=== PATIENT | female | born 1975 | race Caucasian/White ===

== ENCOUNTER 2017-10-26 09:45 | Emergency (ER) | payer OTHER ==
[2017-10-26 09:58] VITALS: BP 143/79
--- NOTE | 2017-10-26 10:01 | UC ---
Hand/Wrist HPI - HPI Summary HPI Summary: This 42-year-old lady hit her left hand a baby gate once today and once yesterday has worsening pain in second and third metacarpal area - History Of Current Complaint Chief Complaint: UCUpperExtremity Stated Complaint: HAND INJURY Time Seen by Provider: 10/26/17 10:00 Hx Obtained From: Patient Hx Last Menstrual Period: ended 08/26/14 Onset/Duration: Sudden Onset, Lasting Days - 1 Severity Initially: Moderate Severity Currently: Moderate Pain Intensity: 6 Pain Scale Used: 0-10 Numeric Character Of Pain: Aching, Throbbing Aggravating Factor(s): Movement, Lifting Alleviating Factor(s): Nothing Associated Signs And Symptoms: Positive: Swelling, Bruising Related History: Dominant Hand Right - Allergies/Home Medications Allergies/Adverse Reactions: Allergies Allergy/AdvReac Type Severity Reaction Status Date / Time No Known Allergies Allergy Verified 10/26/17 09:54 Home Medications: Home Medications Unobtainable [Unobtainable] 10/26/17 [History Confirmed 10/26/17] PMH/Surg Hx/FS Hx/Imm Hx Previously Healthy: Yes - Surgical History Surgical History: Yes Surgery Procedure, Year, and Place: [employer] - cyst and polyp - Family History Known Family History: Positive: None - Social History Occupation: Employed Full-time Lives: With Family Alcohol Use: None Substance Use Type: None Smoking Status (MU): Never Smoked Tobacco Review of Systems Constitutional: Negative Skin: Negative Eyes: Negative ENT: Negative Respiratory: Negative Cardiovascular: Negative Gastrointestinal: Negative Genitourinary: Negative Motor: Negative Neurovascular: Negative Musculoskeletal: Arthralgia - Back left hand near second third metacarpal Neurological: Negative Psychological: Negative Is Patient Immunocompromised?: No All Other Systems Reviewed And Are Negative: Yes Physical Exam Triage Information Reviewed: Yes Appearance: Well-Appearing, No Pain Distress, Well-Nourished Vital Signs: Initial Vital Signs Temp 98.2 F 10/26/17 09:51 Pulse 80 10/26/17 09:51 Resp 19 10/26/17 09:51 BP 143/79 10/26/17 09:51 Pulse Ox 100 10/26/17 09:51 Vital Signs Reviewed: Yes Eye Exam: Normal Eyes: Positive: Conjunctiva Clear ENT Exam: Normal ENT: Positive: Normal ENT inspection, Hearing grossly normal. Negative: Nasal drainage, TMs normal, Trismus, Muffled voice, Hoarse voice, Dental tenderness, Sinus tenderness Dental Exam: Normal Neck exam: Normal Neck: Positive: Supple, Nontender, No Lymphadenopathy Respiratory Exam: Normal Respiratory: Positive: Chest non-tender, No respiratory distress, No accessory muscle use Cardiovascular Exam: Normal Cardiovascular: Positive: RRR, Pulses Normal, Brisk Capillary Refill Musculoskeletal Exam: Normal Musculoskeletal: Positive: Strength Intact, ROM Intact, Edema @ - Small amount of swelling with bruising on tobacco left hand her second third metacarpal Neurological Exam: Normal Neurological: Positive: Alert Psychological Exam: Normal Skin Exam: Other Skin: Positive: Other - Bruising tobacco left hand Diagnostics - Radiology No standard instances Xray Interpretation: No Acute Changes Radiology Interpretation Completed By: ED Physician, Radiologist Hand/Wrist Course/Dx - Course Course Of Treatment: Ice, Reynaldo wrap, Tylenol, ibuprofen follow with PCP. - Differential Dx/Diagnosis Provider Diagnoses: Elevated blood pressure without diagnosis of hypertension, contusion left hand Discharge - Discharge Plan Condition: Stable Disposition: HOME Patient Education Materials: Hypertension (ED), Contusion in Adults (ED) Referrals: Riley Desai MD [Primary Care Provider] - 1 Week
--- NOTE | 2017-10-26 10:34 | RAD ---
INDICATION: Pain at the dorsal hand, specifically the second and third metacarpals after trauma COMPARISON: None. TECHNIQUE: 4 views of the left hand were obtained. FINDINGS: The adequately corticated bones are in normal alignment. No significant focal osseous abnormality or fracture is seen. Joint spaces appear maintained. IMPRESSION: No radiographically apparent fracture or dislocation of the left hand If the patient's symptoms persist, follow-up imaging is recommended.
== END 2017-10-26 10:52 | disposition home or self-care (01) ==
LOC: UCEAST 09:45
DX: S60.222A Contusion of left hand, initial encounter (principal); W22.8XXA Striking against or struck by other objects, initial encounter; Y92.9 Unspecified place or not applicable; R03.0 Elevated blood-pressure reading, without diagnosis of hypertension
CPT/HCPCS: 99212; G0463

== ENCOUNTER 2017-11-05 07:53 | Day surgery (SDC) | payer OTHER ==
[~2017-11-05 07:53] MED LIST: Buffered Lidocaine 0.9% SYRIN* 5 ML/SYR SYRINGE INTRADERM ONE; DiMENhydriNATE IV* 50 MG/ML VIAL IV PUSH PRN; Famotidine IV* 10 MG/ML 2 ML (20 mg) IV ONE; Morphine INJ* 2 MG/ML 1 ML CARPUJECT IV PRN; Naloxone* 0.4 MG/ML 1 ML VIAL IV PRN; PROCHLORPERAZINE INJ 5 MG/ML 2 ML VIAL IV PRN; Scopolamine 1.5 mg* PATCH TRANSDERM PRN; fentaNYL* 50 MCG/ML 2 ML VIAL (100 MCG VIAL) IV PRN; oxyCODONE/Acetamin 5/325 MG* TAB PO PRN
[2017-11-05] MEDS ORDERED: Famotidine IV* 10 MG/ML 2 ML (20 mg) ONE (08:07)
[2017-11-05] MEDS ORDERED: fentaNYL* 50 MCG/ML 2 ML VIAL (100 MCG VIAL) ONE (09:19)
[2017-11-05] MEDS ORDERED: Midazolam* 1 MG/ML 5 ML VIAL (5 MG) ONE (09:20)
[2017-11-05] MEDS ORDERED: Lidocain 1% EPI 1:100,000 * 30 ML MDV ONE (09:30)
[2017-11-05] MEDS ORDERED: Lidocaine 2% PF* 10 ML AMP ONE (09:53)
[2017-11-05] MEDS ORDERED: Lidocaine 2% PF * 5 ML VIAL ONE (09:53)
[2017-11-05] MEDS ORDERED: Succinylcholine* 20 MG/ML 10 ML VIAL ONE (10:07)
[2017-11-05] MEDS ORDERED: Ondansetron INJ* 2 MG/ML VIAL ONE (10:07)
[2017-11-05] MEDS ORDERED: Dexamethasone IV* 4 MG/ML 1 ML (4 MG) ONE (10:07)
[2017-11-05] MEDS ORDERED: Propofol* 10 MG/ML 20 ML BTL IV PUSH ONE (10:07)
[2017-11-05] MEDS ORDERED: Morphine INJ* 10 MG/ML 1 ML CARPUJECT ONE (10:27)
[2017-11-05] MEDS ORDERED: PROCHLORPERAZINE INJ 5 MG/ML 2 ML VIAL ONE (11:06)
[2017-11-05] MEDS ORDERED: Scopolamine 1.5 mg* PATCH ONE (11:07)
[2017-11-05] MEDS ORDERED: oxyCODONE ORAL.SOLN* 5 MG/5 ML UDC ONE (11:44)
[2017-11-05 12:53] VITALS: BP 117/74
--- NOTE | 2017-11-06 02:02 | OP ---
DATE OF OPERATION: 11/05/17 - [facility] DATE OF : 77 SURGEON: Mark Souza MD UTILITY GELATIN MAKER: Remberto Butler MD PRE-OP DIAGNOSIS: Left branchial cleft cyst. POST-OP DIAGNOSIS: Left branchial cleft cyst. OPERATIVE PROCEDURE: Excision of left branchial cleft cyst. SPECIMEN: Left branchial cleft cyst to Pathology. ESTIMATED BLOOD LOSS: Less than 1 cc. COMPLICATIONS: None. INDICATIONS: This is a 42-year-old woman who relatively suddenly developed a cystic left neck mass. Fine needle aspiration demonstrated mature squamous cells without evidence of dysplasia and felt to be most consistent with a branchial cleft cyst. The decision was made to proceed with excision both for treatment as well as definitive diagnosis. DESCRIPTION OF PROCEDURE: On 11/05/17, the patient was brought to the operating room. General anesthesia was induced and an oral endotracheal tube was placed. The patient was positioned on a shoulder roll and with a donut to provide optimal exposure of the left upper neck. The neck was then marked at the intended incision site and approximately 2 cc of 1% lidocaine with 1:100, 000 epinephrine were infiltrated into the subcutaneous soft tissue at the intended incision site. The patient was then prepped with Betadine, sterilely draped and the procedure was begun. A #15-blade was used to make an incision in the left upper neck. Dissection was then continued deeper through the subcutaneous fat and platysma utilizing a Bovie cautery. The mass was readily identified. Slow painstaking dissection was then undertaken tight to the capsule of the mass to liberate it off of the sternocleidomastoid muscle and the internal jugular vein. There was no breach of the capsule of the mass during the procedure. There was essentially no bleeding during the dissection. Small vessels in the vicinity were easily controlled with bipolar cautery. Once the specimen was completely mobilized and removed, the wound was then inspected. It was irrigated with saline. One or two small areas of oozing on the sternocleidomastoid muscles were bipolared. The greater auricular nerve, which was the only nerve directly encountered during the procedure, was intact and undamaged. At this point, the wound was then closed. A deep platysmal layer was closed with 3-0 Vicryl. Subcutaneous layer was also closed with 3-0 Vicryl and a final layer of closure with 5-0 nylon was performed using a running subcuticular stitch. Steri-Strips were then applied. The patient was then returned to the care of the anesthesiologist, extubated and delivered to the PACU in stable condition. [id number]/[facility] #: [id number] MTDD
[2017-11-08] MEDS ORDERED: Scopolamine PATCH Remove* 1 NOTE MISC PATCH OFF ONE (06:39)
== END 2017-11-05 13:15 | disposition home or self-care (01) ==
LOC: OR 07:53
PROVIDERS: ATTEND Otolaryngology
DX: Q18.0 Sinus, fistula and cyst of branchial cleft (principal)
CPT/HCPCS: 81025; 88304; A9270-GY; J0330; J0780; J1100; J2001; J2250; J2270; J2405; J2704; J3010

== ENCOUNTER 2019-06-09 09:45 | Day surgery (SDC) | payer OTHER ==
[~2019-06-09 09:45] MED LIST changes: -Buffered Lidocaine 0.9% SYRIN* 5 ML/SYR SYRINGE INTRADERM ONE; +Buffered Lidocaine 1% SYRIN* 1 ML/SYRINGE INTRADERM ONE; -DiMENhydriNATE IV* 50 MG/ML VIAL IV PUSH PRN; -Famotidine IV* 10 MG/ML 2 ML (20 mg) IV ONE; +Lactated Ringers 1000 ML Bag* 1,000 ML IV SCH; -Morphine INJ* 2 MG/ML 1 ML CARPUJECT IV PRN; -Naloxone* 0.4 MG/ML 1 ML VIAL IV PRN; -PROCHLORPERAZINE INJ 5 MG/ML 2 ML VIAL IV PRN; -Scopolamine 1.5 mg* PATCH TRANSDERM PRN; -fentaNYL* 50 MCG/ML 2 ML VIAL (100 MCG VIAL) IV PRN; -oxyCODONE/Acetamin 5/325 MG* TAB PO PRN
[2019-06-09] MEDS ORDERED: Midazolam* 1 MG/ML 5 ML VIAL (5 MG) ONE (11:56)
[2019-06-09] MEDS ORDERED: fentaNYL* 50 MCG/ML 2 ML VIAL (100 MCG VIAL) ONE (11:56)
[2019-06-09] MEDS ORDERED: Lidocaine 1% INJ* 10 MG/ML 30 ML SDV ONE (12:24)
[2019-06-09] MEDS ORDERED: Bupivacaine 0.25% SDV PF* 10 ML VIAL INJ ONE (12:25)
[2019-06-09] MEDS ORDERED: Naloxone* 0.4 MG/ML 1 ML VIAL IV PRN (12:50)
[2019-06-09 14:55] VITALS: BP 128/86
--- NOTE | 2019-06-09 15:29 | OP ---
DATE OF OPERATION: 06/09/19 - [facility] DATE OF : 77 SURGEON: Darron Candelaria MD. TROUBLE DISPATCHER: JOSÉ LUIS Ma ANESTHESIOLOGIST: Dr. Giron. ANESTHESIA: Local MAC. PRE-OP DIAGNOSIS: Right de Quervain disease. POST-OP DIAGNOSIS: Right de Quervain disease. OPERATIVE PROCEDURE: Right de Quervain's release. INDICATIONS: She has pretty de Quervain's. We talked about her treatment options. She wanted to proceed with surgery. ESTIMATED BLOOD LOSS: 2 mL. COMPLICATIONS: None. FINDINGS: See above and below. There was an accessory compartment. DESCRIPTION OF PROCEDURE: Ms. Ray was seen in the preoperative holding area. The correct site, side and procedure were identified. We came back to the operating room. The arm was prepped and draped in usual fashion and a time- out was performed. The arm was exsanguinated with the Esmarch and the tourniquet was inflated to 225 mmHg. I made a 2 cm transverse incision just proximal to the radial styloid , dissection was carried down, full-thickness flaps were bluntly raised off the tendon sheath. The tendon sheath was released along its dorsal margin. There was an accessory compartment; this was released as well and the septum was excised. Once I completed the release distally and proximally, I cleaned the tendons of any tenosynovitis. Everything was looking very nicely at this point. The wound was irrigated out. The skin was closed with 4-0 Monocryl. A soft dressing was applied and she was taken to the recovery room in stable condition. [id number]/[facility] #: [id number] [facility]
== END 2019-10-25 15:02 | disposition home or self-care (01) ==
LOC: OR 09:45
PROVIDERS: ATTEND Orthopaedic Surgery Hand Surgery
DX: M65.4 Radial styloid tenosynovitis [de Quervain] (principal); E78.5 Hyperlipidemia, unspecified
CPT/HCPCS: 81025; J2250; J3010; J3490